=== PATIENT | male | born 1980 | race African-American/Black ===

== ENCOUNTER 2021-11-05 14:57 | Emergency (ER) | payer OTHER ==
[~2021-11-05] VITALS: Ht 193 cm; Wt 113.4 kg
[~2021-11-05 14:57] MED LIST: ASPIRIN325 PO; CLARITIN10 MG PO; PEPCID20 MG PO; PREDNISONE 20 M20 MG PO
[2021-11-05 16:11] VITALS: BP 125/70
== END 2021-11-05 16:11 ==
LOC: M.ERS 14:57
DX: Z48.00 Encounter for change or removal of nonsurgical wound dressing (principal); K21.9 Gastro-esophageal reflux disease without esophagitis; F17.210 Nicotine dependence, cigarettes, uncomplicated